=== PATIENT | male | born 1980 | race Caucasian/White ===

== ENCOUNTER 2021-08-15 12:38 | Emergency (ER) | payer SELFPAY ==
[~2021-08-15] VITALS: Ht 188 cm; Wt 136.1 kg
== END 2021-08-15 15:33 | disposition home or self-care (01) ==
LOC: ER1 12:38
DX: U07.1 COVID-19 (principal); Z88.2 Allergy status to sulfonamides; Z23 Encounter for immunization
CPT/HCPCS: 99284; M0243